=== PATIENT | female | born 1990 | race Caucasian/White ===

== ENCOUNTER 2018-09-12 08:35 | Emergency (ER) | payer SELFPAY ==
[~2018-09-12] VITALS: Ht 154.9 cm; Wt 69.0 kg
[2018-09-12] MEDS ORDERED: SODIUM CHLORIDE FLUSH 10ML SYR IVF ONE (09:00)
[2018-09-12] MEDS ORDERED: ONDANSETRON 2MG/ML, 2ML IVPush ONE (09:00)
[2018-09-12] MEDS ORDERED: SODIUM CHLORIDE 0.9% 1,000ML IVBOLUS ONE (09:00)
[2018-09-12] MEDS ORDERED: FAMOTIDINE 20 MG/2 ML IVP ONE (09:00)
[2018-09-12] MEDS ORDERED: FAMOTIDINE 20 MG/2 ML ONE (09:27)
[2018-09-12] MEDS ORDERED: ONDANSETRON 2MG/ML, 2ML ONE (09:27)
[2018-09-12 09:32] LABS: BASOPHILS # (AUTO) 0.05 x10^3/uL (0-0.1); BASOPHILS % (AUTO) 0 % (0-1); EOSINOPHILS % (AUTO) 0 % (1-7); LYMPHOCYTES # (AUTO) 2.37 x10^3/uL (1-3.4); LYMPHOCYTES % (AUTO) 18 % (22-44); MD NO; MEAN CORPUSCULAR HEMOGLOBIN 29.6 pg (27.0-34.8); MEAN CORPUSCULAR VOLUME 87.3 fL (80-100); MEAN PLATELET VOLUME 7.2 fL (7.4-10.4); MONOCYTES # (AUTO) 0.71 x10^3/uL (0.2-0.8); MONOCYTES % (AUTO) 5 % (2-9); NEUTROPHILS # (AUTO) 10.01 x10^3/uL (1.8-6.8); NEUTROPHILS % (AUTO) 76 % (42-75); PLATELET COUNT 416 x10^3/uL (130-400); RED CELL DISTRIBUTION WIDTH 13.3 % (9.6-15.2)
[2018-09-12 09:40] LABS: CULTURE INDICATED? YES; MICROSCOPIC INDICATED
[2018-09-12 09:43] LABS: ALANINE AMINOTRANSFERASE 26 U/L (12-78); ALBUMIN 4.2 g/dL (3.4-5.0); ANION GAP 10 mmol/L (5-15); CALCIUM 9.4 mg/dL (8.5-10.1); CHLORIDE 106 mmol/L (98-107); CREATININE 0.87 mg/dL (0.55-1.02)
[2018-09-12 09:48] LABS: ALKALINE PHOSPHATASE 56 U/L (45-117); BILIRUBIN,TOTAL 0.6 mg/dL (0.2-1.0); TOTAL PROTEIN 8.1 g/dL (6.4-8.2)
[2018-09-12] MEDS ORDERED: METOCLOPRAMIDE 5 MG/ML, 2ML ONE (10:25)
[2018-09-12 10:30] VITALS: BP 93/53
[2018-09-12] MEDS ORDERED: POTASSIUM CHLORIDE 10% 40 MEQ/30 ML UDC PO ONE (10:30)
[2018-09-12] MEDS ORDERED: METOCLOPRAMIDE 5 MG/ML, 2ML IVPush ONE (10:30)
--- NOTE | 2018-09-12 11:22 | NUR ---
TOLERATING PO FLUIDS WELL AT THIS TIME
== END 2018-09-12 12:06 | disposition home or self-care (01) ==
LOC: ED 09:56
DX: R11.2 Nausea with vomiting, unspecified (principal); E87.6 Hypokalemia
CPT/HCPCS: 36415; 80053; 81001; 83690; 84703; 85025; 87086; 96361; 96374; 96375; 99283; J2405; J2765; J3490; J7030

== ENCOUNTER 2019-02-23 09:51 | Observation (INO) | payer SELFPAY ==
[~2019-02-23] VITALS: Ht 154.9 cm; Wt 71.5 kg
--- NOTE | 2019-02-23 10:14 | NUR ---
Assumed care of patient. C/O N/V and epigastric pain since 0 yesterday morning. SO at bedside. Will continue to monitor.
[2019-02-23] MEDS ORDERED: PROMETHAZINE 25 MG/ML, 1ML ONE (10:58)
[2019-02-23] MEDS ORDERED: PROMETHAZINE 25 MG/ML, 1ML IM ONE (11:00)
[2019-02-23] MEDS ORDERED: SODIUM CHLORIDE FLUSH 10ML SYR IVF ONE (11:00)
[2019-02-23] MEDS ORDERED: SODIUM CHLORIDE 0.9% 1,000ML IVBOLUS ONE (11:00)
--- NOTE | 2019-02-23 11:00 | NUR ---
IV started and labs drawn. NS bolus and phenergan admin. No other needs at this time.
[2019-02-23 11:04] LABS: BASOPHILS # (AUTO) 0.06 x10^3/uL (0-0.1); BASOPHILS % (AUTO) 0 % (0-1); EOSINOPHILS # (AUTO) 0.01 x10^3/uL (0-0.4); EOSINOPHILS % (AUTO) 0 % (1-7); LYMPHOCYTES # (AUTO) 1.95 x10^3/uL (1-3.4); LYMPHOCYTES % (AUTO) 14 % (22-44); MD NO; MEAN CORPUSCULAR HEMOGLOBIN 29.8 pg (27.0-34.8); MEAN CORPUSCULAR HGB CONC 33.6 g/dL (32.4-35.8); MEAN CORPUSCULAR VOLUME 88.7 fL (80-100); MEAN PLATELET VOLUME 7.5 fL (7.4-10.4); MONOCYTES # (AUTO) 0.64 x10^3/uL (0.2-0.8); MONOCYTES % (AUTO) 5 % (2-9); NEUTROPHILS # (AUTO) 10.96 x10^3/uL (1.8-6.8); NEUTROPHILS % (AUTO) 81 % (42-75); PLATELET COUNT 475 x10^3/uL (130-400); RED BLOOD COUNT 4.97 x10^6/uL (3.82-5.3); RED CELL DISTRIBUTION WIDTH 13.9 % (9.6-15.2)
[2019-02-23 11:16] LABS: ALBUMIN 4.6 g/dL (3.4-5.0); ANION GAP 13 mmol/L (5-15); CALCIUM 10.2 mg/dL (8.5-10.1); CHLORIDE 105 mmol/L (98-107)
[2019-02-23 11:22] LABS: CREATININE 1.11 mg/dL (0.55-1.02)
[2019-02-23 11:23] LABS: ALANINE AMINOTRANSFERASE 24 U/L (12-78); ALKALINE PHOSPHATASE 64 U/L (45-117); TOTAL PROTEIN 8.6 g/dL (6.4-8.2)
[2019-02-23] MEDS ORDERED: ONDANSETRON 2MG/ML, 2ML ONE (12:01)
--- NOTE | 2019-02-23 12:03 | NUR ---
Nicole admin. Patient to CT.
[2019-02-23] MEDS ORDERED: OMNIPAQUE 350 MG/ML, 100ML BOTTLE ONE (12:15)
[2019-02-23] MEDS ORDERED: POTASSIUM CHLORIDE 40 MEQ in SODIUM CHLORIDE 0.9% 500 ML IV ONE (12:30)
--- NOTE | 2019-02-23 12:54 | NUR ---
Nausea persists despite medication. MD aware.
[2019-02-23] MEDS ORDERED: ONDANSETRON 2MG/ML, 2ML IVPush ONE (13:00)
[2019-02-23] MEDS ORDERED: DIAZEPAM 5 MG/ML, 2ML ONE (13:21)
[2019-02-23] MEDS ORDERED: DIAZEPAM 5 MG/ML, 2ML IV ONE (13:30)
[2019-02-23] MEDS ORDERED: PROMETHAZINE 25 MG/ML, 1ML IM PRN (14:00)
[2019-02-23] MEDS ORDERED: OXYcodone IR 5MG TABLET PO PRN (14:00)
[2019-02-23] MEDS ORDERED: hydrALAzine 20 MG/ML, 1ML IVPush PRN (14:00)
--- NOTE | 2019-02-23 14:40 | NUR ---
Attempted report. RN unavailable.
--- NOTE | 2019-02-23 14:46 | NUR ---
Report to DARCIE Kelley.
[2019-02-23 15:19] VITALS: BP 107/72
[2019-02-23] MEDS: D5%-0.45NACL+KCL 20MEQ 1,000 ML IV SCH (16:35)
[2019-02-23] MEDS: ONDANSETRON 2MG/ML, 2ML IVPush PRN (17:56)
[2019-02-23] MEDS ORDERED: DIPHENHYDRAMINE 50 MG/ML, 1ML IVPush PRN (19:00)
[2019-02-23 19:12] VITALS: BP 110/71
[2019-02-23] MEDS: KETOROLAC 30 MG/1 ML IV PRN (19:41)
[2019-02-23 21:25] LABS: MICROSCOPIC INDICATED
[2019-02-23 21:34] LABS: AMPHETAMINE SCREEN, URINE Negative (Negative); BARBITURATE SCREEN, URINE Negative (Negative); BENZODIAZEPINE SCREEN, URINE Negative (Negative); CANNABINOID SCREEN, URINE Positive (Negative); COCAINE SCREEN, URINE Negative (Negative); METHADONE SCREEN, URINE Negative (Negative); OPIATE SCREEN, URINE Negative (Negative)
[2019-02-23 21:39] LABS: CULTURE INDICATED? NO
[2019-02-23] MEDS ORDERED: MAALOX/HYOSCYAMINE/LIDOCAINE 45 ML BTL PO ONE (22:30)
[2019-02-24 01:13] VITALS: BP 103/65
[2019-02-24] MEDS: D5%-0.45NACL+KCL 20MEQ 1,000 ML IV SCH ×3 (01:14→18:28)
[2019-02-24] MEDS: morphine SULFATE 10 MG/ML, 1ML IVPush PRN ×3 (01:19→12:36)
[2019-02-24] MEDS: KETOROLAC 30 MG/1 ML IV PRN (05:27)
[2019-02-24] MEDS: ONDANSETRON 2MG/ML, 2ML IVPush PRN (05:27)
[2019-02-24 06:03] LABS: ANION GAP 7 mmol/L (5-15); CALCIUM 8.1 mg/dL (8.5-10.1); CHLORIDE 109 mmol/L (98-107); CREATININE 0.89 mg/dL (0.55-1.02)
[2019-02-24 06:05] LABS: BASOPHILS # (AUTO) 0.01 x10^3/uL (0-0.1); BASOPHILS % (AUTO) 0 % (0-1); EOSINOPHILS % (AUTO) 0 % (1-7); LYMPHOCYTES # (AUTO) 2.29 x10^3/uL (1-3.4); LYMPHOCYTES % (AUTO) 22 % (22-44); MD NO; MEAN CORPUSCULAR HEMOGLOBIN 29.7 pg (27.0-34.8); MEAN CORPUSCULAR HGB CONC 33.3 g/dL (32.4-35.8); MEAN CORPUSCULAR VOLUME 89.2 fL (80-100); MEAN PLATELET VOLUME 7.4 fL (7.4-10.4); MONOCYTES # (AUTO) 0.84 x10^3/uL (0.2-0.8); MONOCYTES % (AUTO) 8 % (2-9); NEUTROPHILS # (AUTO) 7.29 x10^3/uL (1.8-6.8); NEUTROPHILS % (AUTO) 70 % (42-75); PLATELET COUNT 354 x10^3/uL (130-400); RED BLOOD COUNT 4.08 x10^6/uL (3.82-5.3); RED CELL DISTRIBUTION WIDTH 14.2 % (9.6-15.2)
[2019-02-24] MEDS: MAALOX/HYOSCYAMINE/LIDOCAINE 45 ML BTL PO PRN ×2 (06:18→17:27)
[2019-02-24 07:18] VITALS: BP 107/62
[2019-02-24 13:04] VITALS: BP 117/76
[2019-02-24 18:57] VITALS: BP 122/79
[2019-02-24] MEDS: METOCLOPRAMIDE 5 MG/ML, 2ML IVPush PRN (20:59)
[2019-02-25] MEDS: ONDANSETRON 2MG/ML, 2ML IVPush PRN (00:24)
[2019-02-25 01:14] VITALS: BP 116/79
[2019-02-25] MEDS: D5%-0.45NACL+KCL 20MEQ 1,000 ML IV SCH ×2 (01:23→10:00)
[2019-02-25] MEDS: morphine SULFATE 10 MG/ML, 1ML IVPush PRN (02:53)
[2019-02-25] MEDS: METOCLOPRAMIDE 5 MG/ML, 2ML IVPush PRN (05:04)
[2019-02-25 08:16] VITALS: BP 121/73
== END 2019-02-25 11:50 | disposition home or self-care (01) ==
LOC: ED 11:33 → INTOOBSV 13:48 → EDIP 13:48 → 3NE 14:02 → DCLOUNGE 02-25 11:42
PROVIDERS: ADMIT Internal Medicine; ATTEND Internal Medicine
DX: F12.288 Cannabis dependence with other cannabis-induced disorder (principal); R11.2 Nausea with vomiting, unspecified; R10.9 Unspecified abdominal pain; E83.52 Hypercalcemia; E87.6 Hypokalemia; D72.829 Elevated white blood cell count, unspecified; N17.0 Acute kidney failure with tubular necrosis; D47.3 Essential (hemorrhagic) thrombocythemia
CPT/HCPCS: 36415; 74177; 80048; 80053; 80307; 81001; 83690; 83735; 84703; 85025; 96365; 96366; 96372; 96375; 96376; 99284; G0378; J1200; J1885; J2270; J2405; J2550; J2765; J3360; J3480; J7030; J7040; Q9967

== ENCOUNTER 2019-02-28 21:40 | Emergency (ER) | payer SELFPAY ==
--- NOTE | 2019-02-28 22:00 | NUR ---
ASSUMED CARE OF PATIENT. PATIENT REPORTS SHE WAS RECENTLY DISCHARGED FOR N/V. SINCE PATIENT HAS WENT HOME SHE IS STILL VOMITING X2 A DAY AND IS "TIRED A LOT." VS STABLE. CALL LIGHT IN PLACE. WILL CONTINUE TO MONITOR.
[2019-02-28] MEDS ORDERED: METOCLOPRAMIDE 10MG TABLET ONE (22:25)
[2019-02-28 22:27] VITALS: BP_DIAS 77
--- NOTE | 2019-02-28 22:27 | NUR ---
LAB IN ROOM.
[2019-02-28] MEDS ORDERED: METOCLOPRAMIDE 10MG TABLET PO PRN (22:30)
[2019-02-28 22:40] LABS: MEAN CORPUSCULAR HEMOGLOBIN 30.5 pg (27.0-34.8); MEAN CORPUSCULAR HGB CONC 33.2 g/dL (32.4-35.8); MEAN CORPUSCULAR VOLUME 91.8 fL (80-100); MEAN PLATELET VOLUME 7.4 fL (7.4-10.4); PLATELET COUNT 478 x10^3/uL (130-400); RED BLOOD COUNT 4.83 x10^6/uL (3.82-5.3); RED CELL DISTRIBUTION WIDTH 13.9 % (9.6-15.2)
[2019-02-28 22:48] LABS: ALANINE AMINOTRANSFERASE 45 U/L (12-78); ALBUMIN 3.9 g/dL (3.4-5.0); ANION GAP 8 mmol/L (5-15); CALCIUM 9.1 mg/dL (8.5-10.1); CHLORIDE 105 mmol/L (98-107); CREATININE 0.88 mg/dL (0.55-1.02)
[2019-02-28 22:50] LABS: ALKALINE PHOSPHATASE 55 U/L (45-117); BILIRUBIN,TOTAL 0.4 mg/dL (0.2-1.0); TOTAL PROTEIN 7.6 g/dL (6.4-8.2)
[2019-02-28 22:58] LABS: <RBC MORPHOLOGY> NORMAL; BASOPHILS # (AUTO) 0.06 x10^3/uL (0-0.1); BASOPHILS % (AUTO) 1 % (0-1); EOSINOPHILS # (AUTO) 0.06 x10^3/uL (0-0.4); EOSINOPHILS % (AUTO) 1 % (1-7); LYMPHOCYTES # (AUTO) 3.07 x10^3/uL (1-3.4); LYMPHOCYTES % (AUTO) 27 % (22-44); MD MORPH REVIEW ONLY; MONOCYTES # (AUTO) 0.72 x10^3/uL (0.2-0.8); MONOCYTES % (AUTO) 6 % (2-9); NEUTROPHILS # (AUTO) 7.52 x10^3/uL (1.8-6.8); NEUTROPHILS % (AUTO) 66 % (42-75)
[2019-02-28 22:59] LABS: <PLATELET ESTIMATE> ADEQUATE; LARGE PLATELETS 1+
[2019-02-28 23:27] VITALS: BP_SYST 110
--- NOTE | 2019-02-28 23:27 | NUR ---
DR KEENAN HAS UPDATED PATIENT.
== END 2019-02-28 23:40 | disposition home or self-care (01) ==
LOC: ED 23:24
DX: R11.2 Nausea with vomiting, unspecified (principal); R53.83 Other fatigue
CPT/HCPCS: 36415; 80053; 83690; 83735; 85025; 99283